=== PATIENT | female | born 1990 | race Caucasian/White ===

== ENCOUNTER 2020-04-23 20:33 | Emergency (ER) | payer OTHER ==
[~2020-04-23] VITALS: Ht 167.6 cm; Wt 82.0 kg
[2020-04-23] MEDS ORDERED: ONDANSETRON HCL 4MG/2ML INJ IV ONE (22:45)
[2020-04-23] MEDS ORDERED: FENTANYL CITRATE/PF 50MCG/ML 2ML VIAL IV ONE (22:45)
[2020-04-23 22:52] LABS: BASOPHILS % 0.8 % (0.0-2.0); EOSINOPHILS % 2.5 % (0.0-5.0); HEMATOCRIT. 42.1 % (36.0-48.0); HEMOGLOBIN. 14.3 g/dL (12.0-16.0); MEAN CORPUSCULAR VOLUME 85.2 fL (81.0-99.0); MEAN PLATELET VOLUME 6.1 fl (7.4-10.4); MONOCYTES % 6.1 % (2.0-8.0); NEUTROPHILS % 66.6 % (40.0-76.0); PLATELET 372 x1000/uL (130-400); RED BLOOD CELL COUNT 4.94 mill/uL (4.2-5.4); RED CELL DISTRIBUTION WIDTH 13.9 % (11.6-14.6)
[2020-04-23 22:59] LABS: CHLORIDE 106 mEq/L (98-107)
[2020-04-23 23:03] LABS: HCG SCREEN NEGATIVE
[2020-04-24 00:13] LABS: CLARITY URINE CLEAR (CLEAR); COLOR URINE YELLOW (YELLOW); KETONES URINE NEGATIVE (NEGATIVE); LEUKOCYTE ESTERASE URINE TRACE (NEGATIVE); NITRITE URINE POSITIVE (NEGATIVE); OCCULT BLOOD URINE NEGATIVE (NEGATIVE); PH URINE 6.5 (4.5-8.0); PROTEIN URINE TRACE (NEGATIVE); SPECIFIC GRAVITY URINE 1.025 (1.005-1.030)
[2020-04-24] MEDS ORDERED: NITR-87 MT (00:40)
[2020-04-24] MEDS ORDERED: CEFTRIAXONE 1 G PREMIX 50 ML IV ONE (00:45)
[2020-04-24] MEDS ORDERED: NITROFURANTOIN 100MG M/M CAPSULE PO ONE (00:45)
[2020-04-24 02:56] VITALS: BP 118/73
== END 2020-04-24 02:56 | disposition home or self-care (01) ==
LOC: ER 20:33
DX: S06.0X9A Concussion with loss of consciousness of unspecified duration, initial encounter (principal); M54.2 Cervicalgia; M54.6 Pain in thoracic spine; V49.49XA Driver injured in collision with other motor vehicles in traffic accident, initial encounter; Y93.89 Activity, other specified; Y92.488 Other paved roadways as the place of occurrence of the external cause
CPT/HCPCS: 36415; 70450; 71045; 72125; 72128; 80053; 81003; 81025; 82962; 83605; 83880; 84484; 84703; 85025; 93005; 96374; 96375; 99285; J0696; J2405; J3010

== ENCOUNTER 2020-09-24 13:48 | Emergency (ER) | payer MEDICAID, OTHER ==
[~2020-09-24] VITALS: Ht 167.6 cm; Wt 82.0 kg
[~2020-09-24 13:48] MED LIST: NITR-87 MT
[2020-09-24] MEDS ORDERED: LACTATED RINGERS 1,000 ML IV STA (14:43)
[2020-09-24 15:13] LABS: BASOPHILS % 0.4 % (0.0-2.0); HEMATOCRIT. 26.3 % (36.0-48.0); HEMOGLOBIN. 9.4 g/dL (12.0-16.0); LYMPHOCYTES % 18.9 % (20.0-50.0); MEAN CORPUSCULAR HEMOGLOBIN 29.4 pg (28.0-32.0); MEAN CORPUSCULAR VOLUME 82.6 fL (81.0-99.0); MEAN PLATELET VOLUME 6.2 fl (7.4-10.4); MONOCYTES % 5.2 % (2.0-8.0); NEUTROPHILS % 74.5 % (40.0-76.0); PLATELET 493 x1000/uL (130-400); RED BLOOD CELL COUNT 3.19 mill/uL (4.2-5.4); RED CELL DISTRIBUTION WIDTH 13.4 % (11.6-14.6)
[2020-09-24 15:22] LABS: CHLORIDE 108 mEq/L (98-107)
[2020-09-24 15:38] LABS: HCG SCREEN NEGATIVE
[2020-09-24 15:49] LABS: CLARITY URINE CLEAR (CLEAR); COLOR URINE YELLOW (YELLOW); KETONES URINE NEGATIVE (NEGATIVE); LEUKOCYTE ESTERASE URINE TRACE (NEGATIVE); NITRITE URINE NEGATIVE (NEGATIVE); OCCULT BLOOD URINE NEGATIVE (NEGATIVE); PH URINE 5.5 (4.5-8.0); PROTEIN URINE NEGATIVE (NEGATIVE); SPECIFIC GRAVITY URINE 1.028 (1.005-1.030); UROBILINOGEN URINE 0.2 E.U./dL (0.2-1.0)
[2020-09-24 16:03] LABS: METHADONE URINE SCREEN NEGATIVE (NEGATIVE); OPIATES URINE SCREEN NEGATIVE (NEGATIVE)
[2020-09-24 16:04] LABS: *BARBITURATES SCREEN URINE NEGATIVE (NEGATIVE); *BENZODIAZEPINES SCREEN URINE NEGATIVE (NEGATIVE); *COCAINE SCREEN URINE NEGATIVE (NEGATIVE); CANNABINOID URINE SCREEN NEGATIVE (NEGATIVE); PHENCYCLIDINE URINE SCREEN NEGATIVE (NEGATIVE)
[2020-09-24 16:13] LABS: *AMPHETAMINES SCREEN URINE PRESUMTIVE POSITIVE (NEGATIVE)
[2020-09-24] MEDS ORDERED: FERR324T4 MT (17:20)
[2020-09-24] MEDS ORDERED: METO-293 MT (17:20)
[2020-09-24] MEDS ORDERED: PROT40 MT (17:21)
[2020-09-24 17:30] VITALS: BP 110/72
== END 2020-09-24 17:37 | disposition home or self-care (01) ==
LOC: ER 13:48
DX: F12.188 Cannabis abuse with other cannabis-induced disorder (principal); D64.9 Anemia, unspecified; R94.4 Abnormal results of kidney function studies; F15.10 Other stimulant abuse, uncomplicated; F16.10 Hallucinogen abuse, uncomplicated
CPT/HCPCS: 36415; 80048; 80076; 80305; 81003; 81025; 83690; 84703; 85025; 93005; 96360; 99284; J7120; Z7610

== ENCOUNTER 2023-10-20 21:50 | Emergency (ER) | payer BC, MEDICAID ==
[~2023-10-20] VITALS: Ht 162.6 cm; Wt 69.0 kg
[~2023-10-20 21:50] MED LIST changes: +FERR324T4 MT; +METO-293 MT; +PROT40 MT
[2023-10-20 21:52] VITALS: BP 137/89; PULSE 109; RESP 16; TEMP 98.7; O2SAT 98
== END 2023-10-21 01:25 | disposition left against medical advice (07) ==
LOC: ER 21:50
DX: M54.2 Cervicalgia (principal); Z53.21 Procedure and treatment not carried out due to patient leaving prior to being seen by health care provider

== ENCOUNTER 2024-02-05 05:22 | Emergency (ER) | payer BC, OTHER ==
[~2024-02-05] VITALS: Ht 167.6 cm; Wt 108.0 kg
[2024-02-05 05:25] VITALS: TEMP 98.1; O2SAT 100
[2024-02-05 05:26] VITALS: BP 166/91; PULSE 103; O2SAT 99
[2024-02-05] MEDS: ACETAMINOPHEN 325MG TABLET PO ONE (06:22)
[2024-02-05] MEDS ORDERED: AMOX1TAB16 PO (06:22)
[2024-02-05] MEDS ORDERED: TOPUD PO (06:23)
[2024-02-05] MEDS: BUPIVACAINE HCL/PF 0.25% (2.5MG/ML) 10ML INFIL ONE (06:25)
[2024-02-05 06:35] VITALS: RESP 18
== END 2024-02-05 06:38 | disposition home or self-care (01) ==
LOC: ER 05:22
DX: K04.7 Periapical abscess without sinus (principal); Z90.49 Acquired absence of other specified parts of digestive tract; Z79.899 Other long term (current) drug therapy
CPT/HCPCS: 99283; J3490; Z7610 ×2